=== PATIENT | female | born 1975 | race African-American/Black ===

== ENCOUNTER 2019-06-11 10:39 | Emergency (ER) | payer BC ==
[~2019-06-11] VITALS: Ht 170.2 cm; Wt 131.1 kg
[~2019-06-11 10:39] MED LIST: CELEXA 10 MG TA10 M1; CYMBALTA30 MG PO; FIORICET 50-321 EACH PO
[2019-06-11 10:55] LABS: URINE BLOOD NEGATIVE (Negative); URINE CLARITY CLOUDY; URINE GLUCOSE-RANDOM* NEGATIVE (Negative); URINE KETONES 2+ (Negative); URINE LEUKOCYTES-REFLEX TRACE (Negative); URINE NITRITE-REFLEX NEGATIVE (Negative); URINE PROTEIN (DIPSTICK) 2+ (Negative); URINE SPECIFIC GRAVITY 1.025 (1.005-1.035)
[2019-06-11 11:00] LABS: ICTOTEST (BILI CONFIRMATORY) Negative (Negative); URINE BILIRUBIN NEGATIVE (Negative); URINE COLOR DARK YELLOW
[2019-06-11 11:10] LABS: CASTS None Seen /LPF (None Seen); CRYSTALS None Seen /LPF (None Seen); SQUAMOUS >10 Many /LPF (0-3); URINE RBC None Seen /HPF (0-2); URINE WBC-REFLEX 6-15 Few /HPF (0-5)
[2019-06-11] MEDS ORDERED: ONDANSETRON HCL4 M2 PO (11:19)
[2019-06-11] MEDS ORDERED: PROCARE1 EACH (11:19)
[2019-06-11] MEDS ORDERED: HYDROCODON-ACE1 EA11 PO (11:20)
[2019-06-11] MEDS ORDERED: COLACE100 MG PO (11:21)
[2019-06-11] MEDS ORDERED: VITAMIN D250000 UNIT PO (11:22)
[2019-06-11] MEDS ORDERED: TYLENOL325 M1 PO (11:22)
[2019-06-11] MEDS ORDERED: MIRALAX119 GM PO (11:23)
[2019-06-11] MEDS ORDERED: SUPER THERAVIT1 EACH PO (11:25)
[2019-06-11 11:45] LABS: ABSOLUTE NEUTROPHILS 9.4 thou/uL (1.4-8.2); BASOPHILS 0.6 % (0.0-2.0); EOSINOPHILS 0.5 % (0.0-3.0); HEMATOCRIT 35.8 % (37.0-47.0); HEMOGLOBIN 11.7 gm/dL (12.0-15.0); LYMPHOCYTES 10.7 % (24.0-44.0); MCH 26.1 pg (26.0-34.0); MCHC 32.8 g/dL (28.0-37.0); MCV 79.7 fL (80.0-100.0); MONOCYTES 5.3 % (1.0-8.0); PLATELET COUNT 282 thou/uL (150-400); POLYS 82.9 % (36.0-66.0); RBC 4.49 mil/uL (4.20-5.00); RDW 14.3 % (10.5-14.5); WBC 11.3 thou/uL (4.0-11.0)
[2019-06-11 11:52] LABS: CALCIUM 9.4 mg/dL (8.5-10.1); POTASSIUM 3.6 mmol/L (3.5-5.1)
[2019-06-11 11:58] LABS: TOTAL BILIRUBIN 0.5 mg/dL (<0.1-1.0); TOTAL PROTEIN 7.8 g/dL (6.4-8.2)
[2019-06-11] MEDS ORDERED: ZOFRAN4 MG PO (13:08)
[2019-06-11] MEDS ORDERED: BENTYL 20 MG TA20 M1 PO (13:08)
[2019-06-11 14:00] VITALS: BP 116/65
--- NOTE | 2019-06-12 10:15 | EKG ---
[place] [address] [facility] [place] [address] ELECTROCARDIOGRAM REPORT Name: ELIJAH BERNARDO Room #: [facility]#: [id number] Admission: 06/11/19 Attend Phys: Discharge: 06/11/19 Date of : 71 Report #: [id number] THIS REPORT FOR: //name// [facility] ED Test Date: 2019-06-11 Test Time: 11:48:27 Pat Name: ELIJAH BERNARDO Department: Room: Gender: F Curtain Stitcher: FABIO : 1975 Requested By: George Laboy Order Number: [id number] MD: Toro Car Measurements Intervals [place] Rate: 79 P: 37 SD: 160 QRS: 20 QRSD: 109 T: -11 QT: 370 QTc: 425 Interpretive Statements Sinus rhythm Borderline T abnormalities, inferior leads Compared to ECG 12/04/2012 16:58:45 T-wave abnormality now present Electronically Signed On 06-12-2019 10:15:09 CDT by Toro Car [email or web address] <ELECTRONICALLY SIGNED> By: Toro Car MD 06/12/19 1015 [id number] MD GIOVANNI Abreu
== END 2019-06-11 14:02 | disposition home or self-care (01) ==
LOC: ER 10:39
PROVIDERS: Emergency Medicine
DX: R10.30 Lower abdominal pain, unspecified (principal); R42 Dizziness and giddiness; F17.210 Nicotine dependence, cigarettes, uncomplicated